=== PATIENT | female | born 1960 ===

== ENCOUNTER 2022-11-16 06:41 | Day surgery (SDC) | payer OTHER, BC ==
[~2022-11-16 06:41] MED LIST: Lactated Ringers 1,000 ML IV SCH; Sodium Chloride 0.9% 10 ML Syringe FLUSH PRN; Sodium Chloride 0.9% 10 ML Syringe FLUSH SCH
[2022-11-16] MEDS ORDERED: Lidocaine 1% 6 ML ONE (07:30)
[2022-11-16] MEDS ORDERED: Propofol 200 MG/20 ML SDV ONE (07:31)
[2022-11-16] MEDS ORDERED: Midazolam 1 MG/ML 2 ML SDV ONE (07:31)
[2022-11-16] MEDS ORDERED: fentaNYL 250 MCG/5 ML SDV ONE (07:31)
[2022-11-16] MEDS ORDERED: Ketorolac 30 MG/ML SDV ONE (07:33)
[2022-11-16] MEDS ORDERED: Ondansetron 4 MG/2 ML SDV ONE (07:33)
[2022-11-16] MEDS ORDERED: Lidocaine 1% 20 ML MDV ONE (07:33)
[2022-11-16] MEDS ORDERED: Ketamine 500 mg/10 ML MDV ONE (07:38)
[2022-11-16 07:40] LABS: APPEARANCE,URINE CLEAR (Clear); BILIRUBIN,URINE NEGATIVE (Negative); COLOR,URINE YELLOW (Yellow); GLUCOSE,URINE NEGATIVE (Negative); KETONES,URINE NEGATIVE (Negative); LEUKOCYTE ESTERASE,URINE 1+ (Negative); NITRITE,URINE NEGATIVE (Negative); OCCULT BLOOD,URINE NEGATIVE (Negative); PROTEIN,URINE NEGATIVE (Negative); UROBILINOGEN,URINE 0.2 (0.2-1.0)
[2022-11-16] MEDS ORDERED: EPINEPHrine 1 MG/ML SDV ONE (07:50)
[2022-11-16] MEDS ORDERED: Rocuronium 50 MG/5 ML Vial ONE (07:50)
[2022-11-16] MEDS ORDERED: cefOXitin 2 GM Vial ONE (08:10)
[2022-11-16] MEDS ORDERED: Neostigmine Methylsulfate 10 MG/10 ML MDV ONE (09:17)
[2022-11-16] MEDS ORDERED: Dexamethasone 4 MG/ML 5 ML MDV ONE (09:23)
[2022-11-16] MEDS ORDERED: Lactated Ringers 1,000 ML ONE (09:28)
[2022-11-16] MEDS ORDERED: HYDROmorphone 0.5 MG/0.5 ML Syringe IVPUSH PRN (09:54)
[2022-11-16] MEDS ORDERED: fentaNYL 100 MCG/2 ML SDV IVPUSH PRN (09:54)
== END 2022-11-16 12:28 | disposition home or self-care (01) ==
LOC: JD.SDS 06:41
PROVIDERS: ATTEND Obstetrics & Gynecology
DX: N76.89 Other specified inflammation of vagina and vulva (principal); D36.7 Benign neoplasm of other specified sites; R14.0 Abdominal distension (gaseous); J30.9 Allergic rhinitis, unspecified; E78.00 Pure hypercholesterolemia, unspecified; N90.4 Leukoplakia of vulva; Z88.1 Allergy status to other antibiotic agents; Z79.82 Long term (current) use of aspirin; Z79.899 Other long term (current) drug therapy; Z90.49 Acquired absence of other specified parts of digestive tract; Z90.710 Acquired absence of both cervix and uterus; Z98.51 Tubal ligation status; Z88.0 Allergy status to penicillin; Z87.891 Personal history of nicotine dependence
CPT/HCPCS: 00902; 81003; J0171; J0694; J1100; J1885; J2250; J2405; J2704; J2710; J3010; J3490; J7120